=== PATIENT | male | born 1975 ===

== ENCOUNTER 2022-12-20 13:46 | Emergency (ER) | payer SELFPAY ==
[~2022-12-20] VITALS: Ht 177.8 cm; Wt 81.6 kg
[2022-12-20 15:21] LABS: BASO % 0.5 % (0.0-1.0); EOS # 0.1 10*3/uL (0.0-0.4); HEMATOCRIT 42.6 % (42.0-52.0); LYMPH # 1.2 10*3/uL (1.3-4.4); LYMPH % 19.7 % (27.0-41.0); MEAN CELL VOLUME 91.4 fl (80.0-94.0); MEAN CORPUSCULAR HGB 30.5 pg (27.0-31.0); MEAN CORPUSCULAR HGB CONC 33.3 g/dl (33.0-37.0); MEAN PLATELET VOLUME 9.3 fl (9.6-12.3); MONO # 0.6 10*3/uL (0.1-1.0); MONO % 9.7 % (3.0-9.0); NEUT # 4.3 10*3/uL (2.3-7.9); NEUT % 68.9 % (47.0-73.0); PLATELET COUNT AUTOMATED 256 10*3/uL (130-400); RED BLOOD COUNT 4.66 10*6/uL (4.50-5.90); RED CELL DISTRI WIDTH 12.4 % (0-14.5); WHITE BLOOD COUNT 6.3 10*3/uL (4.8-10.8)
[2022-12-20 15:39] LABS: BUN 10 mg/dl (9-23); CHLORIDE 107 mmol/L (98-107); POTASSIUM 3.5 mmol/L (3.4-5.1)
[2022-12-20] MEDS ORDERED: CEPHALEXIN500 M1 PO (17:11)
== END 2022-12-20 18:09 | disposition home or self-care (01) ==
LOC: ED 13:46
PROVIDERS: Nurse Practitioner Family
DX: S62.633B Displaced fracture of distal phalanx of left middle finger, initial encounter for open fracture (principal); W26.8XXA Contact with other sharp object(s), not elsewhere classified, initial encounter; Y93.89 Activity, other specified; Y92.89 Other specified places as the place of occurrence of the external cause; Y99.8 Other external cause status

== ENCOUNTER 2022-12-28 21:06 | Emergency (ER) | payer SELFPAY ==
[~2022-12-28] VITALS: Ht 177.8 cm; Wt 79.4 kg
[~2022-12-28 21:06] MED LIST: CEPHALEXIN500 M1 PO
== END 2022-12-28 23:16 | disposition home or self-care (01) ==
LOC: ED 21:06
DX: Z48.00 Encounter for change or removal of nonsurgical wound dressing (principal)

== ENCOUNTER 2023-01-02 23:19 | Emergency (ER) | payer SELFPAY | END 2023-01-02 23:59 | disposition home or self-care (01) | LOC: ED 23:19 | DX: S61.213D Laceration without foreign body of left middle finger without damage to nail, subsequent encounter (principal); X58.XXXD Exposure to other specified factors, subsequent encounter ==

== ENCOUNTER 2024-06-23 10:17 | Emergency (ER) | payer SELFPAY ==
[~2024-06-23] VITALS: Wt 81.6 kg
[2024-06-23] MEDS ORDERED: SODIUM CHLORIDE 0.9% 1,000 ML IV ONE (10:55)
[2024-06-23] MEDS ORDERED: Ketorolac Tromethamine 15 MG/ML VIAL IV ONE (10:55)
[2024-06-23 11:13] LABS: BASO % 0.1 % (0.0-1.0); EOS # 0.1 10*3/uL (0.0-0.4); EOS % 1.3 % (1.0-4.0); HEMATOCRIT 43.3 % (42.0-52.0); MEAN CELL VOLUME 90.4 fl (80.0-94.0); MEAN CORPUSCULAR HGB 30.7 pg (27.0-31.0); MEAN CORPUSCULAR HGB CONC 33.9 g/dl (33.0-37.0); MONO # 0.7 10*3/uL (0.1-1.0); MONO % 7.7 % (3.0-9.0); NEUT # 7.4 10*3/uL (2.3-7.9); NEUT % 82.6 % (47.0-73.0); PLATELET COUNT AUTOMATED 259 10*3/uL (130-400); RED BLOOD COUNT 4.79 10*6/uL (4.50-5.90); RED CELL DISTRI WIDTH 12.3 % (0-14.5)
[2024-06-23 11:35] LABS: BUN 13 mg/dl (9-23); CHLORIDE 103 mmol/L (98-107); POTASSIUM 3.6 mmol/L (3.4-5.1)
[2024-06-23] MEDS ORDERED: AMOX-CLAV 875-1 EACH PO (11:59)
== END 2024-06-23 18:09 | disposition home or self-care (01) ==
LOC: ED 10:17
PROVIDERS: Emergency Medicine
DX: H66.91 Otitis media, unspecified, right ear (principal); Z20.822 Contact with and (suspected) exposure to COVID-19; R42 Dizziness and giddiness; R51.9 Headache, unspecified; I10 Essential (primary) hypertension; E78.5 Hyperlipidemia, unspecified; Z86.73 Personal history of transient ischemic attack (TIA), and cerebral infarction without residual deficits

== ENCOUNTER 2025-03-28 07:36 | Emergency (ER) | payer SELFPAY ==
[~2025-03-28] VITALS: Ht 177.8 cm; Wt 79.4 kg
[~2025-03-28 07:36] MED LIST changes: +AMOX-CLAV 875-1 EACH PO
[2025-03-28] MEDS ORDERED: NAPROXEN250 MG PO (08:58)
== END 2025-03-28 09:04 | disposition home or self-care (01) ==
LOC: ED 07:36
DX: M25.551 Pain in right hip (principal); R07.81 Pleurodynia